=== PATIENT | male | born 1995 | race Caucasian/White ===

== ENCOUNTER 2018-04-15 01:03 | Emergency (ER) | payer OTHER ==
[~2018-04-15] VITALS: Ht 175.3 cm; Wt 99.8 kg
[2018-04-15 01:55] LABS: URINE BILIRUBIN NEGATIVE (Negative); URINE BLOOD NEGATIVE (Negative); URINE CLARITY CLEAR; URINE COLOR YELLOW; URINE GLUCOSE-RANDOM NEGATIVE (Negative); URINE KETONES NEGATIVE (Negative); URINE LEUKOCYTES-REFLEX NEGATIVE (Negative); URINE NITRITE-REFLEX NEGATIVE (Negative); URINE PROTEIN NEGATIVE (Negative); URINE SPECIFIC GRAVITY 1.025 (1.005-1.030); URINE UROBILINOGEN 0.2 E.U./dl (0.2-1.0)
[2018-04-15 02:06] LABS: MPV 8.6 fl. (7.2-11.1); NUCLEATED RBCS 0 /100WBC
[2018-04-15 02:08] LABS: ABSOLUTE BASOPHILS 0.1 thou/uL (0.0-0.2); ABSOLUTE EOSINOPHILS 0.2 thou/uL (0.0-0.7); ABSOLUTE LYMPHOCYTES 2.2 thou/uL (0.8-5.3); ABSOLUTE NEUTROPHILS 7.9 thou/uL (1.6-8.1); BASOPHILS 0.5 %; EOSINOPHILS 1.8 %; HEMATOCRIT 40.7 % (42.0-52.0); LYMPHOCYTES 19.1 %; MCH 30.8 pg (26.0-34.0); MCHC 34.4 g/dL (28.0-37.0); MCV 89.6 fL (80.0-100.0); PLATELET COUNT* 191 thou/uL (150-400); POLYS 69.6 %; RBC 4.54 mil/uL (4.50-6.00); RDW-CV 12.6 % (10.5-14.5); WBC 11.3 thou/uL (4.0-11.0)
[2018-04-15 02:25] LABS: POTASSIUM 3.8 mmol/L (3.5-5.1)
[2018-04-15 02:30] LABS: ALBUMIN 3.8 g/dL (3.4-5.0); TOTAL BILIRUBIN 0.4 mg/dL (<0.1-1.0); TOTAL PROTEIN 6.8 g/dL (6.4-8.2)
[2018-04-15] MEDS ORDERED: ZOFRAN ODT4 MG PO (04:46)
[2018-04-15] MEDS ORDERED: CIPROFLOXACIN500 M1 PO (04:46)
[2018-04-15] MEDS ORDERED: FLAGYL500 M1 PO (04:46)
[2018-04-15] MEDS ORDERED: NORCO 5-325 TA1 EACH PO (04:46)
[2018-04-15 05:13] VITALS: BP 128/63
== END 2018-04-15 05:14 | disposition home or self-care (01) ==
LOC: M.ERS 01:03
PROVIDERS: Personal Emergency Response Attendant
DX: K57.92 Diverticulitis of intestine, part unspecified, without perforation or abscess without bleeding (principal)